=== PATIENT | male | born 1955 | race Caucasian/White ===

== ENCOUNTER 2021-04-19 06:32 | Day surgery (SDC) | payer OTHER ==
[2021-04-19] MEDS ORDERED: Sodium Chloride 0.9% 1,000 ML IV SCH (07:00)
[2021-04-19] MEDS ORDERED: Midazolam 1 MG/ML 2 ML SDV ONE (07:24)
[2021-04-19] MEDS ORDERED: Propofol 200 MG/20 ML SDV ONE (07:24)
[2021-04-19] MEDS ORDERED: fentaNYL 100 MCG/2 ML SDV ONE (07:24)
--- NOTE | 2021-04-21 21:33 | OR ---
DATE OF PROCEDURE: 04/19/2021 SURGEON: Xavier Sepulveda MD PROCEDURE: Colonoscopy. FINDINGS: Normal colonoscopy. PREOPERATIVE DIAGNOSIS: Screening colonoscopy. POSTOPERATIVE DIAGNOSIS: Screening colonoscopy. RISKS: Risks, benefits, alternatives, and limitations including but not limited to infection, bleeding, perforation, false positives and false negatives were explained to the patient and he wished to proceed. PROCEDURE IN DETAIL: The patient was placed in left lateral decubitus position. Digital rectal exam was performed without abnormality. Scope was introduced and advanced atraumatically to the ileocecal valve. A photo was taken of the appendiceal orifice. Scope was brought back to the ascending, transverse, descending colon, and retroflexed. No evidence of old or new blood. No masses. No polyps. No diverticulosis. No abnormalities on retroflexion. Greater than 8 minutes was spent removing the scope. The prep was acceptable with approximately 90% of the luminal surface could be seen. The patient tolerated the procedure well. Xavier Sepulveda MD /[id number]
== END 2021-04-19 09:05 | disposition home or self-care (01) ==
LOC: JP.SDS 06:32
PROVIDERS: ATTEND Surgery
DX: Z12.11 Encounter for screening for malignant neoplasm of colon (principal); E78.5 Hyperlipidemia, unspecified; Z88.0 Allergy status to penicillin
CPT/HCPCS: J2250; J2704; J3010; J7030

== ENCOUNTER 2023-05-25 10:37 | Emergency (ER) | payer MEDICARE | END 2023-05-25 11:51 | disposition home or self-care (01) | LOC: JP.ED 10:37 | DX: M77.9 Enthesopathy, unspecified (principal); M79.641 Pain in right hand; R03.0 Elevated blood-pressure reading, without diagnosis of hypertension; E78.00 Pure hypercholesterolemia, unspecified; J45.909 Unspecified asthma, uncomplicated; Z88.8 Allergy status to other drugs, medicaments and biological substances | CPT/HCPCS: 99283 ==